=== PATIENT | male | born 1945 | race Asian ===

== ENCOUNTER 2019-02-25 08:36 | Day surgery (SDC) | payer OTHER ==
[~2019-02-25] VITALS: Ht 162.6 cm; Wt 74.0 kg
[~2019-02-25 08:36] MED LIST: ASPI-817 PO; ATOR40TA68 PO; CIPR500T4 PO; HYDR12.58 PO; LORA10TA3 PO; LOSA50TA14 PO; TAMS0.4C2 PO
[2019-02-25 09:24] VITALS: Ht 162.6 cm; Wt 74.0 kg
[2019-02-25 09:35] VITALS: BP 120/63; PULSE 73; RESP 20
[2019-02-25] MEDS ORDERED: LIDOCAINE 100 MG SYRINGE ONE (09:47)
[2019-02-25] MEDS ORDERED: PROPOFOL 40 ML ONE (09:47)
[2019-02-25] MEDS ORDERED: FENTAnyl 50 MCG/ML VIAL ONE (09:47)
--- NOTE | 2019-02-25 09:53 | PREAC ---
Date/Time of Note Date/Time of Note DATE: 02/25/19 TIME: 09:51 Anesthesia Eval and Record Evaluation Time Pre-Procedure Interview DATE: 02/25/19 TIME: 09:51 Age 74 Sex male NPO: 8 hrs Preoperative diagnosis ABDOMINAL PAIN, POSITIVE OCCULT BLOOD IN STOOL, HX OF POLYPS, ACID REFLUX Planned procedure EGD, COLONOSCOPY Past Medical History Past Medical History: Includes Cardio: HTN, Dyslipidemia, CAD, PTCA/Stent Renal: BPH Surgery & Anesthesia Issues No known issue Meds Anticoagulation: No Beta So within 24 hr: No Reason Beta So not given: Pt. not on B-So Reported Medications Tamsulosin Hcl* (Tamsulosin Hcl*) 0.4 Mg Cap.er.24h, 0.4 MG PO DAILY, CAP 08/02/16 Losartan Potassium* (Losartan Potassium*) 50 Mg Tablet, 50 MG PO DAILY, TAB 08/02/16 Loratadine* (Loratadine*) 10 Mg Tablet, 10 MG PO DAILY, #30 TAB 08/02/16 Hydrochlorothiazide* (Hydrochlorothiazide*) 12.5 Mg Tablet, 12.5 MG PO DAILY, #30 TAB 08/02/16 Atorvastatin* (Atorvastatin*) 40 Mg Tablet, 40 MG PO QHS, #30 TAB 08/02/16 Aspirin* (Aspirin* EC) 81 Mg Tablet.dr, 81 MG PO DAILY, TAB 08/02/16 Discontinued Reported Medications Ciprofloxacin Hcl* (Ciprofloxacin Hcl*) 500 Mg Tablet, 500 MG PO BID, #14 TAB 08/02/16 Meds reviewed: Yes Allergies Coded Allergies: No Known Drug Allergies (Verified Allergy, Unknown, 02/25/19) Allergies Reviewed: Yes Labs/Studies Labs Reviewed: Reviewed by anesthesiologist test: N/A Pre-procedure Exam Last vitals Vital Signs Date Temp Pulse Resp B/P (MAP) Pulse Ox O2 O2 Flow FiO2 Time Delivery Rate 02/25/19 97.6 73 20 120/63 98 Room Air 09:35 (82) Airway: Adequate mouth opening, Adequate thyromental dist Mallampati: Mallampati II Teeth: Normal Lung: Normal Heart: Normal ASA Physical Status ASA physical status: 3 Emergency: None Planned Anesthetic General/MAC: MAC Planned Pain Management Parenteral pain med Pre-operative Attestations Prior to commencing anesthesia and surgery, the patient was re-evaluated, there was verification of: *The patient's identity *The results of appropriate recent lab work and preoperative vital signs *The above evaluation not changing prior to induction *Anesthetic plan, risk benefits, alternative and complications discussed with patient/family; questions answered; patient/family understands, accepts and wishes to proceed. Toni Sterling M.D. Feb 25, 2019 09:53
--- NOTE | 2019-02-25 10:27 | PAC ---
Date/Time of Note Date/Time of Note DATE: 02/25/19 TIME: 10:26 Post-Anesthesia Notes Post-Anesthesia Note Last documented vital signs Vital Signs Date Temp Pulse Resp B/P (MAP) Pulse Ox O2 O2 Flow FiO2 Time Delivery Rate 02/25/19 97.6 73 20 120/63 98 Room Air 09:35 (82) Activity: WNL Respiratory function: WNL Cardiovascular function: WNL Mental status: Baseline Pain reasonably controlled: Yes Hydration appropriate: Yes Nausea/Vomiting absent: Yes Toni Sterling M.D. Feb 25, 2019 10:27
[2019-02-25 11:07] VITALS: BP 131/67; RESP 20
== END 2019-02-25 13:10 | disposition home or self-care (01) ==
LOC: GIL 08:36
PROVIDERS: ATTEND Internal Medicine Gastroenterology
DX: K92.1 Melena (principal); K64.8 Other hemorrhoids; K29.60 Other gastritis without bleeding; I10 Essential (primary) hypertension; E78.5 Hyperlipidemia, unspecified; I25.10 Atherosclerotic heart disease of native coronary artery without angina pectoris; Z79.82 Long term (current) use of aspirin
CPT/HCPCS: 43239; 45378; 88305; 88312; J2001; J3010; Z7610